=== PATIENT | male | born 1985 | race American Indian/Alaskan Native ===

== ENCOUNTER 2017-04-07 12:15 | Emergency (ER) | payer SELFPAY ==
--- NOTE | 2017-04-07 13:49 | Emergency Department Report ---
Entered by REGINALD GONZALEZ, acting as scribe for BASHIR CHATMAN NP. Chief Complaint: Urogenital-Male Stated Complaint: BLOOD CLOTS IN URINE STOMACH PAIN Time Seen by Provider: 04/07/17 13:41 - HPI History of Present Illness: Pt c/o testicular pain and dysruia for 1 week. Notes Hx of similar symptoms and was admitted for an infection. Pt has a suprapubic catherter present that he change every 2 weeks. + fever and chills. + hematuria and urgency - nausea and vomiting Notes not sexually active for 8 months - ROS Review of Systems: All system are negative unless stated in HPI above. - Exam Vital Signs: Vital Signs 04/07/17 13:16 Temperature 98.3 F Pulse Rate 64 Respiratory 16 Rate Blood Pressure 129/81 O2 Sat by Pulse 100 Oximetry Physical Exam: General: well nourished, well developed, 31 year old male in no acute distress and nontoxic in appearance : erythematous scrotum. Suprapubic catheter present no tesiticular swelling not torsion, MSE screening note: Focused history and physical exam performed. Due to findings the following was ordered: See above ED Medical Decision Making - Medical Decision Making Patient screened by provider in triage area. Labs sent in for patient. Patient to be seen by MD on main ED side. ED Disposition for MSE Condition: Stable This documentation as recorded by the scribeCARLOS JASMINE,accurately reflects the service I personally performed and the decisions made by me, BASHIR CHATMAN NP.
[2017-04-07 15:06] LABS: Bacteria,Urine 1+ /HPF (Negative); Bilirubin,Urine NEG (Negative); Blood,Urine MOD (Negative); Ketones,Urine TR mg/dL (Negative); Leukocyte Esterase,Urine LG (Negative); Mucus,Urine 3+ /HPF; Nitrite,Urine POS (Negative); Urobilinogen,Urine < 2.0 mg/dL (<2.0)
[2017-04-07 15:07] LABS: WBC,Urine > 182.0 /HPF (0.0-6.0)
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
--- NOTE | 2017-04-07 23:58 | Ultrasound Report ---
FINAL REPORT EXAM: US TESTICULAR DOPPLER COMP HISTORY: testicular pain TECHNIQUE: Directed sonography of the scrotum. PRIORS: None. FINDINGS: Right testicle measures 4 x 1.8 x 2.8 cm. Left testicle measures 4 x 1.8 x 2.7 cm. Mildly heterogeneous echogenicity bilaterally. No intratesticular masses. Blood flow present bilaterally. Left epididymal head mildly prominent and hyperemic. Right epididymis unremarkable. No abnormal fluid collections. IMPRESSION: 1. No intratesticular masses or evidence of torsion. 2. Findings which may represent nonspecific postinflammatory change involving left epididymis or epididymitis uncertain chronicity. Correlate clinically.
[2017-04-08] MEDS ORDERED: MACROBID PO ONE (00:14)
[2017-04-08 01:15] VITALS: BP 116/74
== END 2017-04-08 01:15 | disposition home or self-care (01) ==
LOC: ED 12:15
DX: N30.01 Acute cystitis with hematuria (principal)
CPT/HCPCS: 81001; 87086; 93975; 99284